=== PATIENT | female | born 1965 | race Caucasian/White ===

== ENCOUNTER → 2019-02-17 | Outpatient (CLI) | payer OTHER | END | disposition home or self-care (01) | LOC: US 10:35 | DX: N95.0 Postmenopausal bleeding (principal); D25.1 Intramural leiomyoma of uterus; R93.89 Abnormal findings on diagnostic imaging of other specified body structures ==

== ENCOUNTER 2021-09-25 18:34 | Inpatient (IN) | payer BC ==
[~2021-09-25] VITALS: Ht 175.3 cm; Wt 68.1 kg
[2021-09-25 19:03] VITALS: BP 118/81
[2021-09-25 22:17] LABS: BASO % 0.3 % (0.0-1.0); EOS % 0.2 % (1.0-4.0); HEMATOCRIT 33.2 % (37.0-47.0); LYMPH # 0.8 10*3/uL (1.3-4.4); MEAN CELL VOLUME 86.5 fl (81.0-99.0); MEAN CORPUSCULAR HGB 28.1 pg (27.0-31.0); MEAN CORPUSCULAR HGB CONC 32.5 g/dl (33.0-37.0); MEAN PLATELET VOLUME 9.2 fl (9.6-12.3); MONO # 0.9 10*3/uL (0.1-1.0); MONO % 6.8 % (3.0-9.0); NEUT # 10.8 10*3/uL (2.3-7.9); NEUT % 86.2 % (47.0-73.0); PLATELET COUNT AUTOMATED 507 10*3/uL (130-400); RED BLOOD COUNT 3.84 10*6/uL (4.10-5.10); RED CELL DISTRI WIDTH 13.3 % (0-14.5); WHITE BLOOD COUNT 12.6 10*3/uL (4.8-10.8)
[2021-09-25 22:33] LABS: ALKALINE PHOSPHATASE 90 U/L (45-117); BUN 8 mg/dl (7-24); CHLORIDE 103 mmol/L (98-107); CREATININE 0.49 mg/dL (0.55-1.02); LIPASE 37 U/L (73-393); POTASSIUM 3.8 mmol/L (3.5-5.1); SGOT/AST 8 IU/L (3-35); SGPT/ALT 14 U/L (12-78); SODIUM 135 mmol/L (136-145); TOTAL PROTEIN 6.5 gm/dL (6.4-8.2)
[2021-09-26] VITALS (10 sets, daily range): BP systolic 85–113; BP diastolic 40–62
[2021-09-27] VITALS (8 sets, daily range): BP systolic 94–134; BP diastolic 47–93
[2021-09-28] VITALS: BP 106/57
[2021-09-28 08:00] VITALS: BP 96/53
[2021-09-28] MEDS ORDERED: PROTONIX40 MG PO (08:42)
[2021-09-28] MEDS ORDERED: CARAFATE1 GM PO (08:42)
[2021-09-28] MEDS ORDERED: AMOXICILLIN500 M2 PO (08:47)
[2021-09-28] MEDS ORDERED: Clarithromycin250 MG PO (08:47)
== END 2021-09-28 10:53 | disposition home or self-care (01) | DRG 381 ==
LOC: ED 18:34 → 4E 09-26 02:30 → EDHOLD 09-26 02:30 → 4E 09-26 17:27
PROVIDERS: Emergency Medicine; ADMIT Internal Medicine; ATTEND Internal Medicine
PROC: 0DJ08ZZ Inspection of Upper Intestinal Tract, Via Natural or Artificial Opening Endoscopic (ICD-10-PCS; principal; 2021-09-27)
DX: K28.9 Gastrojejunal ulcer, unspecified as acute or chronic, without hemorrhage or perforation (principal); K56.7 Ileus, unspecified; K59.00 Constipation, unspecified; D64.9 Anemia, unspecified; K20.90 Esophagitis, unspecified without bleeding; K80.20 Calculus of gallbladder without cholecystitis without obstruction; Z90.710 Acquired absence of both cervix and uterus

== ENCOUNTER → 2021-11-06 | Outpatient (CLI) | payer BC ==
[~2021-11-06] MED LIST: AMOXICILLIN500 M2 PO; CARAFATE1 GM PO; Clarithromycin250 MG PO; PROTONIX40 MG PO
== END | disposition home or self-care (01) ==
LOC: RAD 07:49
PROVIDERS: ATTEND Internal Medicine
DX: Z13.820 Encounter for screening for osteoporosis (principal); Z78.0 Asymptomatic menopausal state; R29.890 Loss of height; F17.200 Nicotine dependence, unspecified, uncomplicated

== ENCOUNTER 2022-08-31 12:36 | Emergency (ER) | payer BC ==
[~2022-08-31] VITALS: Ht 175.2 cm; Wt 68.9 kg
[2022-08-31 17:23] LABS: BASO # 0.1 10*3/uL (0.0-0.1); EOS # 0.2 10*3/uL (0.0-0.4); EOS % 2.7 % (1.0-4.0); HEMATOCRIT 37.7 % (37.0-47.0); LYMPH # 1.5 10*3/uL (1.3-4.4); LYMPH % 25.5 % (27.0-41.0); MEAN CELL VOLUME 87.7 fl (81.0-99.0); MEAN CORPUSCULAR HGB 27.9 pg (27.0-31.0); MEAN CORPUSCULAR HGB CONC 31.8 g/dl (33.0-37.0); MEAN PLATELET VOLUME 10.1 fl (9.6-12.3); MONO # 0.3 10*3/uL (0.1-1.0); MONO % 5.7 % (3.0-9.0); NEUT # 3.9 10*3/uL (2.3-7.9); NEUT % 64.9 % (47.0-73.0); PLATELET COUNT AUTOMATED 285 10*3/uL (130-400); RED CELL DISTRI WIDTH 13.9 % (0-14.5)
[2022-08-31 17:35] LABS: ACT PARTIAL THROMBO TIME 24.6 SECONDS (20.0-32.1)
[2022-08-31 17:41] LABS: ALKALINE PHOSPHATASE 66 U/L (46-116); CHLORIDE 105 mmol/L (98-107); LIPASE 29 U/L (12-53); POTASSIUM 4.1 mmol/L (3.4-5.1); SGPT/ALT 9 U/L (10-49); TOTAL PROTEIN 6.9 gm/dL (6.0-8.0)
[2022-08-31 17:45] LABS: BUN < 5 mg/dl (9-23)
== END 2022-08-31 19:40 | disposition home or self-care (01) ==
LOC: ED 12:36
PROVIDERS: Emergency Medicine
DX: F41.9 Anxiety disorder, unspecified (principal); Z88.6 Allergy status to analgesic agent; Z90.710 Acquired absence of both cervix and uterus